=== PATIENT | female | born 1975 | race Asian ===

== ENCOUNTER 2025-07-31 22:43 | Inpatient (IN) | payer OTHER ==
[~2025-07-31] VITALS: Ht 162.6 cm; Wt 63.5 kg
[2025-07-31] MEDS ORDERED: DICYCLOMINE HCL INJ 20 MG/2 ML AMPUL IM ONE (23:10)
[2025-07-31] MEDS: IV NS 0.9% 1,000 ML BAG IV ONE (23:20)
[2025-07-31] MEDS: DICYCLOMINE HCL INJ 20 MG/2 ML AMPUL IM ONE (23:22)
[2025-07-31 23:33] LABS: PLATELET COUNT (AUTO) 131 K/uL (150-450); RED BLOOD CELL COUNT(AUTO) 6.50 MIL/uL (4.0-5.2); RED CELL DISTRIBUTION WIDTH 18.6 % (11.5-15.0)
[2025-07-31 23:37] LABS: WHITE BLOOD COUNT (AUTO) 0.6 K/uL (4.3-11.0)
[2025-07-31 23:40] LABS: ASPARTATE AMINOTRANSFERASE 14.0 U/L (15-37); CALCIUM, SERUM 7.9 mg/dL (8.5-10.1); CREATININE 0.7 mg/dL (0.6-1.3); SODIUM SERUM 129.0 mmol/L (136-145); TOTAL PROTEIN, SERUM 8.1 g/dL (6.4-8.2); UREA NITROGEN, BLOOD 10.0 mg/dL (7-18)
[2025-07-31 23:42] LABS: INR 1.27 (0.91-1.10)
[2025-07-31] MEDS ORDERED: POTASSIUM CL. PREMIX PERIPHER. 200 ML ONE (23:58)
[2025-07-31] MEDS ORDERED: POTASSIUM CHLORIDE 20 MEQ TAB.PRT.SR PO ONE (23:58)
[2025-08-01] MEDS: POTASSIUM CHLORIDE 10 MEQ/50 ML PREMIXED IVPB FOR PERIPHERAL LINE IV ONE (00:11)
[2025-08-01] MEDS: POTASSIUM CHLORIDE 20 MEQ TAB.PRT.SR PO ONE ×2 (00:11→11:14)
[2025-08-01] MEDS ORDERED: Magnesium 1GM/D5W 100ML PREMIX 100 ML IV ONE ×2 (00:21→01:54)
[2025-08-01] MEDS: Magnesium 1GM/D5W 100ML PREMIX 100 ML IV SCH (00:24)
[2025-08-01] MEDS ORDERED: CEFTRIAXONE 1GM BAG (ER ONLY) 50 ML IV ONE (00:45)
[2025-08-01] MEDS: CEFTRIAXONE 1GM BAG (ER ONLY) 1 GM/50 ML PIGGYBACK IV ONE (01:07)
[2025-08-01] MEDS: IV NS 0.9% 1,000 ML BAG IV ONE (02:14)
[2025-08-01] MEDS: IV NS 0.9% 500 ML BAG IV ONE (02:14)
[2025-08-01 02:15] LABS: LYMPHOCYTES % (MANUAL) 88 % (16-48); MONOCYTES % (MANUAL) 9 % (0-11.0); NEUTROPHILS % (MANUAL) 3 (42-76)
[2025-08-01 02:17] LABS: PLATELET ESTIMATE DECREASED
[2025-08-01] MEDS ORDERED: METH10TA7 PO (02:55)
[2025-08-01] MEDS ORDERED: PROP60CA2 PO (02:55)
[2025-08-01] MEDS ORDERED: IV NS 0.9% 1,000 ML IV SCH (03:30)
[2025-08-01] MEDS ORDERED: IV NS 0.9% 500 ML IV ONE (03:30)
[2025-08-01] MEDS ORDERED: POTASSIUM CHLORIDE 10 MEQ/50 ML PREMIXED IVPB FOR PERIPHERAL LINE IV ONE (03:30)
[2025-08-01] MEDS ORDERED: MAG HYDROX/AL HYDROX/SIMETH 30 ML UDC PO PRN (03:30)
[2025-08-01] MEDS ORDERED: ONDANSETRON HCL/PF 4 MG/2 ML VIAL IVP PRN (03:30)
[2025-08-01] MEDS ORDERED: Z GUARD REMEDY 4 OZ OINT TP PRN (03:30)
[2025-08-01] MEDS ORDERED: ACETAMINOPHEN 325 MG TABLET PO PRN (03:30)
[2025-08-01] MEDS ORDERED: ZOLPIDEM TARTRATE 5 MG TABLET PO PRN ×2 (03:30→04:00)
[2025-08-01] MEDS ORDERED: MAGNESIUM HYDROXIDE 30 ML UDC PO PRN (03:30)
[2025-08-01] MEDS ORDERED: ONDANSETRON HCL/PF 4 MG/2 ML VIAL IV PRN (04:00)
[2025-08-01] MEDS ORDERED: ACETAMINOPHEN ES 500 MG TABLET PO PRN (04:00)
[2025-08-01] MEDS ORDERED: HYDROCODONE/APAP 5/325MG TABLET PO PRN (04:00)
[2025-08-01] MEDS ORDERED: MORPHINE SULFATE INJ 2 MG/ML DISP.SYRIN IV PRN (04:00)
[2025-08-01 04:26] LABS: APPEARANCE,URINE SLIGHTLY CLOUDY (CLEAR); BLOOD, URINE 3+ Ery/uL (NEGATIVE); LEUKOCYTE ESTERASE ,URINE NEGATIVE (NEGATIVE); NITRITE, URINE NEGATIVE (NEGATIVE); UGLUCOSE NEGATIVE (NEGATIVE)
[2025-08-01 05:01] LABS: ADD URINE CULTURE YES
[2025-08-01 05:02] LABS: URINE AMORPHOUS URATE Moderate /HPF (None Seen)
[2025-08-01] MEDS ORDERED: PIPERACILLIN /TAZOBACTAM 3.375 G in IV D5W 50 ML IV SCH (06:00)
[2025-08-01 07:48] LABS: PREGNANCY TEST URINE QUAL NEGATIVE (NEGATIVE)
[2025-08-01] MEDS: IV NS 0.9% 1,000 ML IV PRN (08:43)
[2025-08-01] MEDS ORDERED: PROPRANOLOL LA 60 MG CAP.SA.24H PO SCH ×2 (09:00)
[2025-08-01 09:28] LABS: PLATELET COUNT (AUTO) 159 K/uL (150-450); RED BLOOD CELL COUNT(AUTO) 5.64 MIL/uL (4.0-5.2); RED CELL DISTRIBUTION WIDTH 18.7 % (11.5-15.0)
[2025-08-01 09:38] LABS: CALCIUM, SERUM 7.4 mg/dL (8.5-10.1); CREATININE 0.5 mg/dL (0.6-1.3); SODIUM SERUM 132.0 mmol/L (136-145); UREA NITROGEN, BLOOD 6.0 mg/dL (7-18)
[2025-08-01 09:44] LABS: WHITE BLOOD COUNT (AUTO) 0.5 K/uL (4.3-11.0)
[2025-08-01] MEDS: PANTOPRAZOLE 40 MG TABLET.DR PO SCH (09:47)
[2025-08-01] MEDS: PIPERACILLIN /TAZOBACTAM 3.375 G in IV D5W 50 ML IV SCH (09:47)
[2025-08-01] MEDS: PROPRANOLOL HCL 40 MG TABLET PO SCH (09:48)
[2025-08-01] MEDS: METHIMAZOLE (5MG) 5 MG TABLET PO SCH (11:20)
[2025-08-01 11:45] LABS: LYMPHOCYTES % (MANUAL) 90 % (16-48); MONOCYTES % (MANUAL) 5 % (0-11.0); NEUTROPHILS % (MANUAL) 5 (42-76)
[2025-08-01 11:46] LABS: PLATELET ESTIMATE ADEQUATE
[2025-08-01] MEDS: Potassium Chloride 20 MEQ in IV NS 0.9% 1,000 ML IV SCH (13:16)
[2025-08-01 15:30] VITALS: BP 120/62; TEMP 98; O2SAT 99
== END 2025-08-01 16:25 | disposition short-term general hospital (02) | DRG 866 ==
LOC: ER 22:48 → TELE 08-01 05:33 → TELE IN 08-01 06:30 → TELE 08-01 07:40 → MED 08-01 08:16
PROVIDERS: ADMIT Internal Medicine; ATTEND Internal Medicine
DX: B34.9 Viral infection, unspecified (principal); D69.6 Thrombocytopenia, unspecified; D72.819 Decreased white blood cell count, unspecified; E03.9 Hypothyroidism, unspecified; E05.90 Thyrotoxicosis, unspecified without thyrotoxic crisis or storm; K51.30 Ulcerative (chronic) rectosigmoiditis without complications; E87.1 Hypo-osmolality and hyponatremia; R17 Unspecified jaundice; E86.0 Dehydration; E87.6 Hypokalemia; Z79.899 Other long term (current) drug therapy; T38.2X5A Adverse effect of antithyroid drugs, initial encounter; Y92.9 Unspecified place or not applicable; M76.60 Achilles tendinitis, unspecified leg
CPT/HCPCS: 36415; 80048-TC; 80076-TC; 81001; 83690-TC; 84300-TC; 84439-TC; 84443-TC; 84703-TC; 85027-TC; 85730-TC; 87086-TC; A4223; G0378; G0480; J0500; J0696; J2543; J3475; J3480; J7030; J7060